=== PATIENT | male | born 1970 | race Caucasian/White ===

== ENCOUNTER 2018-05-30 20:57 | Emergency (ER) | payer MEDICAID ==
--- NOTE | 2018-05-30 21:48 | C.PDOC ---
History Of Present Illness 47 y/o male presents to the ED complaining of pain and itchiness to the bilateral feet for 2 days. He notes the skin appears dry and itchy, which has worsened with ambulation. Denies any blunt trauma or fall. Patient also complains of an itchy rash to the groin area. Denies any recent sexual intercourse, penile discharge, testicular pain, fevers, or chills. He reports having similar symptoms 1 year ago and was treated with an unknown cream and oral medication. Patient is ambulatory with pain. Time Seen by Provider: 05/30/18 21:47 Chief Complaint (Nursing): Lower Extremity Problem/Injury History Per: Patient History/Exam Limitations: no limitations Onset/Duration Of Symptoms: Days Current Symptoms Are (Timing): Still Present Past Medical History Reviewed: Historical Data, Nursing Documentation, Vital Signs - Medical History PMH: No Chronic Diseases Family History: States: No Known Family Hx - Social History Hx Tobacco Use: Yes (heavy) Hx Alcohol Use: Yes Hx Substance Use: No Review Of Systems Constitutional: Negative for: Fever, Chills, Sweats, Weakness, Malaise Eyes: Negative for: Pain, Vision Change, Conjunctivae Inflammation ENT: Negative for: Ear Pain, Ear Discharge, Nose Pain, Nose Discharge, Nose Congestion, Mouth Pain Cardiovascular: Negative for: Chest Pain, Palpitations, Orthopnea, Edema, Light Headedness Respiratory: Negative for: Cough, Shortness of Breath, SOB with Excertion, Pleuritic Pain Gastrointestinal: Negative for: Nausea, Vomiting, Abdominal Pain, Constipation Genitourinary: Positive for: Rash, Other (Itchiness to bilateral groin). Negative for: Dysuria, Frequency, Incontinence, Hematuria, Penile Discharge, Scrotal Pain, Penile Pain Musculoskeletal: Positive for: Foot Pain (and itchiness). Negative for: Neck Pain, Shoulder Pain, Back Pain Skin: Positive for: Rash. Negative for: Jaundice, Bruising Neurological: Negative for: Weakness, Numbness, Incoordination Psych: Negative for: Anxiety, Depression Physical Exam - Physical Exam Appears: Non-toxic, No Acute Distress Skin: Warm, Dry, Rash (Excoriations to bilateral feet and ankles, no erythema; Similar appearing rash to the bilateral testicles) Head: Normacephalic Eye(s): bilateral: Normal Inspection, PERRL, EOMI Oral Mucosa: Moist Chest: Symmetrical Cardiovascular: Rhythm Regular Respiratory: No Rales, No Rhonchi, No Wheezing Male Genital: No Testicular Tenderness, No Testicular Swelling Extremity: Bilateral: Normal ROM Pulses: Left Dorsalis Pedis: Normal, Right Dorsalis Pedis: Normal Neurological/Psych: Oriented x3, Normal Speech Gait: Steady ED Course And Treatment - Laboratory Results Result Diagrams: 05/30/18 22:21 05/30/18 22:21 O2 Sat by Pulse Oximetry: 98 (RA) Pulse Ox Interpretation: Normal Medical Decision Making Medical Decision Makin47 y/o M p/w pain and itchiness to the bilateral feet and groin, hx of similar rash 1 year ago Initial Plan: --CBC --CMP --Testicular US No crepitus, erythema. No elevated WBC, CRP. No HypoNa: clinical findings suggestive of tinea cruris 1200 US w/ out abscess pt in NAD, wound reassessed: no expansion of margins. No perineal findings will d/c home w/ abx and azole cream. pt agreeable to plan. Given follow up and return indications. Disposition - Disposition Referrals: [facility] [Outside] [facility] [Outside] Bridger Pyle MD [Staff Provider] - Disposition: HOME/ ROUTINE Disposition Time: 00:05 Condition: GOOD Additional Instructions: FRANKI TURNER, thank you for letting us take care of you today. Your provider was Kenji Forte and you were treated for FEET PAIN. The emergency medical care you received today was directed at your acute symptoms. If you were prescribed any medication, please fill it and take as directed. It may take several days for your symptoms to resolve. Return to the Emergency Department if your symptoms worsen, do not improve, or if you have any other problems. Please contact your doctor or call one of the physicians/clinics you have been referred to that are listed on the Patient Visit Information form that is included in your discharge packet. Bring any paperwork you were given at discharge with you along with any medications you are taking to your follow up visit. Our treatment cannot replace ongoing medical care by a primary care provider outside of the emergency department. Thank you for allowing the [facility] team to be part of your care today. If you had an X-Ray or CT scan: A Radiologist will review the ED reading if any change in treatment is needed we will contact you. If you had a blood, urine, or wound culture: It will take several days for the results, if any change in treatment is needed we will contact you. If you had an STI test: It will take 48 hours for the results. Please call after 1 week if you have not heard back. Prescriptions: Cephalexin [cephalexin] 500 mg PO Q6H 5 Days #20 cap Clotrimazole 1% Cream [Lotrimin 1%] 30 gm EXT BID 30 Days #2 tube Instructions: Ringworm, Athlete's Foot, and Jock Itch, Jock Itch (DC), Locker Room Infections Forms: [facility] [facility] (Greek) - Clinical Impression Clinical Impression: Tinea cruris, Tinea - Scribe Statement The provider has reviewed the documentation as recorded by the Harish Pierson Provider Attestation: All medical record entries made by the Harish were at my direction and personally dictated by me. I have reviewed the chart and agree that the record accurately reflects my personal performance of the history, physical exam, medical decision making, and the department course for this patient. I have also personally directed, reviewed, and agree with the discharge instructions and disposition.
[2018-05-30 21:49] VITALS: TEMP 98.3
[2018-05-30 22:27] LABS: BASO # 0.1 K/uL (0.0-0.2); BASO % 0.8 % (0.0-2.0); EOS # 0.8 K/uL (0.0-0.7); EOS % 8.5 % (0.0-4.0); HEMOGLOBIN 12.7 g/dL (12.0-18.0); LYMPH # 2.6 K/uL (1.0-4.3); LYMPH % 26.4 % (20.0-40.0); MEAN CELL VOLUME 89.7 fL (80.0-94.0); MEAN CORPUSCULAR HEMOGLOBIN 29.7 pg (27.0-31.0); MEAN CORPUSCULAR HGB CONC 33.1 g/dL (33.0-37.0); MEAN PLATELET VOLUME 7.7 fL (7.2-11.7); MONO # 0.8 K/uL (0.0-0.8); MONO % 8.4 % (0.0-10.0); NEUT # 5.5 K/uL (1.8-7.0); NEUT % 55.9 % (50.0-75.0); RBC 4.26 Mil/uL (4.40-5.90); RED CELL DISTRIBUTION WIDTH 13.1 % (11.5-14.5); WHITE BLOOD COUNT 9.9 K/uL (4.8-10.8)
[2018-05-30 22:37] LABS: ALB/GLOB RATIO 1.3 (1.0-2.1); ALBUMIN 4.3 g/dL (3.5-5.0); ALT/SGPT 26 U/L (21-72); AST/SGOT 29 U/L (17-59); BLOOD UREA NITROGEN 22 mg/dL (9-20); CALCIUM 8.9 mg/dl (8.6-10.4); GFR NON-AFRICAN AMERICAN > 60
[2018-05-30 23:35] LABS: VENOUS BLOOD GAS BASE EXCESS 1.7 mmol/L (0.0-2.0); VENOUS BLOOD GAS PCO2 42 mmHg (40-60); VENOUS BLOOD GAS PO2 67 mm/Hg (30-55); VENOUS BLOOD PH 7.41 (7.32-7.43)
[2018-05-31 00:33] VITALS: BP 110/69; PULSE 87; RESP 16; O2SAT 99
--- NOTE | 2018-05-31 09:34 | US ---
Date of service: 05/30/2018 HISTORY: ?abscess TECHNIQUE: Realtime sonography through the scrotum with color and doppler flow. COMPARISON: None Available. FINDINGS: RIGHT TESTICLE: Measures 3.8 x 1.5 x 2.4 cm. Homogeneous echotexture. No mass. Normal flow demonstrated. RIGHT EPIDIDYMIS: Normal size, morphology and vascularity. No mass. LEFT TESTICLE: Measures 3.7 x 1.6 x 2.4 cm. Homogeneous echotexture. No mass. Normal flow demonstrated. LEFT EPIDIDYMIS: Normal size, morphology and vascularity.No mass. HYDROCELE: None. VARICOCELE: None. OTHER FINDINGS: None. IMPRESSION: Unremarkable examination. The preliminary findings for this examination were reported by [facility] at 11:46 p.m. on 05/30/2018. There is discordance of this report with the preliminary findings. There is no evidence of varicocele in this patient.
== END 2018-05-31 01:15 | disposition home or self-care (01) ==
LOC: C.ER 20:57
DX: B35.6 Tinea cruris (principal)